=== PATIENT | male | born 1960 | race Caucasian/White ===

== ENCOUNTER → 2017-11-27 | Day surgery (SDC) | payer OTHER ==
[~2017-11-27] VITALS: Ht 182.8 cm; Wt 115.7 kg
--- NOTE | ~2017-11-27 | O ---
[place], [place] OPERATIVE NOTE NAME: DEBBIE JOYCE UNIT #: [id number] ROOM: DOCTOR: THA KEY MD BIRTHDATE: [birth year] DOS: 11/27/2017 GASTROENDOSCOPIC REPORT INDICATIONS: This is a 56-year-old patient who presented with history of colonic polyps, undergone investigation. ALLERGIES: No known medication. FAMILY HISTORY: Noncontributory. PAST SURGICAL HISTORY: Bladder carcinoma. SOCIAL HISTORY: Nonsmoker, nonalcohol consumer. PROCEDURE: Today's procedure part of investigation is colonoscopy plus snare polypectomy and tattoo marking. PREMEDICATION: Versed and Diprivan. SCOPE: Olympus folding colonoscope 10L video. REPORT: After putting the patient in left lateral position and application of lubricant to rectal pouch and digital examination, the scope was introduced. Thereafter, under direct visualization, advanced through the length of colon without difficulty. Again, retained semi-liquid stool to the left and transverse and ascending colon was noticed. Painstakingly lavaged and suctioned and eventually exposing a part of the tissue in hepatic flexure ____ polypoid lesion. Polypoid lesion was snared and entirely eradicated from the stalk. Site was tattoo marked with 2 mL of dye and base of cecum explored. Scope was gradually withdrawn. The patient extubated and tolerated the procedure well. IMPRESSION: Hepatic flexure polypoid lesion. Some retained liquid stool, status post snare polypectomy and tattoo marking of the hepatic flexure. PLAN AND DISCUSSION: High fiber fruit diet. ACTIVITY: Ad chris. FOLLOWUP: Routinely with you in office, p.r.n. visit with us in [facility]. [place], [place] OPERATIVE NOTE NAME: DEBBIE JOYCE UNIT #: [id number] ROOM: DOCTOR: THA KEY MD BIRTHDATE: [birth year] THA KEY MD CM:OPRECORD:OPERATIVE NOTE 1009 1207 THA KEY MD 11/27/17 1207 interface
[2017-11-27 08:13] VITALS: BP 153/83
[2017-11-27 10:02] VITALS: BP 122/67
[2017-11-27 10:17] VITALS: BP 113/56
[2017-11-27 10:30] VITALS: BP 115/68
== END | disposition home or self-care (01) ==
LOC: SDC 11-22 08:00
DX: Z09 Encounter for follow-up examination after completed treatment for conditions other than malignant neoplasm (principal); Z86.010 Personal history of colon polyps; K63.5 Polyp of colon; Z85.51 Personal history of malignant neoplasm of bladder; Z98.890 Other specified postprocedural states; Z87.891 Personal history of nicotine dependence

== ENCOUNTER → 2019-10-12 | Outpatient (CLI) | payer OTHER | END | disposition home or self-care (01) | LOC: RAD 11:37 | DX: M51.86 Other intervertebral disc disorders, lumbar region (principal); M51.87 Other intervertebral disc disorders, lumbosacral region; M47.896 Other spondylosis, lumbar region ==